=== PATIENT | male | born 1960 ===

== ENCOUNTER 2020-09-10 10:53 | Day surgery (SDC) | payer OTHER ==
[~2020-09-10 10:53] MED LIST: ACID REDUCER20 M1 PO; FOLIC A PO; LISINOPRIL PO; OMEGA 3-6-9 11200 M1 PO; PROTECT PLUS S1 EACH PO; TAMS0.4C PO
[2020-09-10] MEDS ORDERED: PERCOCET 5-3251 EACH PO (16:45)
== END 2020-09-10 19:50 | disposition home or self-care (01) ==
LOC: CIR.AMB 10:53
PROVIDERS: ATTEND Surgery
DX: T83.410S Breakdown (mechanical) of implanted penile prosthesis, sequela (principal); Z20.822 Contact with and (suspected) exposure to COVID-19
CPT/HCPCS: 54410; C1813

== ENCOUNTER 2022-01-22 12:30 | Emergency (ER) | payer OTHER ==
[~2022-01-22] VITALS: Ht 180.3 cm; Wt 79.4 kg
[~2022-01-22 12:30] MED LIST changes: +PERCOCET 5-3251 EACH PO
== END 2022-01-22 14:44 | disposition home or self-care (01) ==
LOC: ER 12:30
DX: N50.812 Left testicular pain (principal); N50.811 Right testicular pain; N45.1 Epididymitis; I10 Essential (primary) hypertension

== ENCOUNTER 2022-07-01 07:47 | Outpatient (CLI) | payer OTHER | END 2022-07-01 07:49 | disposition home or self-care (01) | LOC: RAD 07:47 | PROVIDERS: ATTEND Anesthesiology Pain Medicine | DX: M41.34 Thoracogenic scoliosis, thoracic region (principal); M54.2 Cervicalgia ==

== ENCOUNTER 2022-09-30 08:40 | Outpatient (CLI) | payer OTHER | END 2022-09-30 08:47 | disposition home or self-care (01) | LOC: RAD 08:40 | PROVIDERS: ATTEND Anesthesiology Pain Medicine | DX: M25.561 Pain in right knee (principal); M50.322 Other cervical disc degeneration at C5-C6 level; M50.323 Other cervical disc degeneration at C6-C7 level | CPT/HCPCS: 72141 ==

== ENCOUNTER 2023-01-19 08:45 | Outpatient (CLI) | payer OTHER | END 2023-01-19 08:52 | disposition home or self-care (01) | LOC: MRI 08:45 | PROVIDERS: ATTEND Family Medicine Adult Medicine | DX: M54.59 Other low back pain (principal) | CPT/HCPCS: 72148 ==

== ENCOUNTER 2023-07-03 09:51 | Outpatient (CLI) | payer OTHER | END 2023-07-03 09:59 | disposition home or self-care (01) | LOC: RAD 09:51 | DX: M25.559 Pain in unspecified hip (principal); M54.59 Other low back pain ==

== ENCOUNTER 2023-07-17 09:23 | Outpatient (CLI) | payer OTHER | END 2023-07-17 09:28 | disposition home or self-care (01) | LOC: RAD 09:23 | DX: M25.512 Pain in left shoulder (principal) ==